=== PATIENT | female | born 1965 | race Caucasian/White ===

== ENCOUNTER → 2017-11-07 | Day surgery (SDC) | payer OTHER ==
--- NOTE | 2017-11-08 15:24 | PATH ---
Cytology Non-Gynecological Report Patient Name: TERRIE WILSON [facility]. Rec. #: [id number] /Age/Gender: 1965 (Age: 52) / F Account: [id number] Location: RADIOLOGY Taken: 11/07/2017 Received: 11/07/2017 Reported: 11/08/2017 Physicians: Ibrahima Arana M.D. Specimen(s) Received LEFT THYROID FNA Clinical History Thyroid nodule, 2.35 x 2.12 x 1.89 cm Final Diagnosis THYROID, LEFT, FINE NEEDLE ASPIRATION: SATISFACTORY FOR EVALUATION. BETHES[place] V: SUSPICIOUS FOR PAPILLARY THYROID CARCINOMA. ATYPICAL FOLLICULAR CELLS WITH ENLARGED NUCLEI, NUCLEAR GROOVES AND INTRANUCLEAR CLEARING, DISPERSED CLUSTERS, AND SYNCITIAL FRAGMENTS IN A BACKGROUND OF MACROPHAGES. Comment: Findings discussed with Dr. Lewis. Electronically Signed Farzana Sanchez M.D. Gross Description Received are eight direct smears, four of which are air-dried and Diff-Quik stained, and four of which are alcohol fixed and Pap stained. Also received is 20 ml of bloody formalin from which one cellblock is prepared.
== END | disposition home or self-care (01) ==
LOC: JRADIR 09:40
PROVIDERS: ATTEND Internal Medicine Endocrinology, Diabetes & Metabolism
PROC: 0GJK3ZZ Inspection of Thyroid Gland, Percutaneous Approach (ICD-10-PCS; principal; 2017-11-07)
DX: D44.0 Neoplasm of uncertain behavior of thyroid gland (principal)
CPT/HCPCS: 76942; 88173; 88305-TC

== ENCOUNTER 2021-08-14 09:07 | Emergency (ER) | payer OTHER ==
[2021-08-14 09:42] VITALS: BMI 51.6
[2021-08-14] MEDS ORDERED: CASIRIVIMAB/IMDEVIMAB 10 ML in SODIUM CHLORIDE 100 ML IVPB ONE (10:28)
[2021-08-14 11:37] VITALS: TEMP 98
[2021-08-14 13:43] VITALS: BP 124/69; PULSE 85
== END 2021-08-14 13:43 | disposition home or self-care (01) ==
LOC: JCOVINFU 09:07 → JER 09:07 → JCOVINFU 13:43
DX: U07.1 COVID-19 (principal)
CPT/HCPCS: 99284-25; Q0240